=== PATIENT | male | born 2005 | race Caucasian/White ===

== ENCOUNTER 2023-02-05 07:37 | Outpatient (CLI) | payer BC | END 2023-02-05 07:38 | disposition home or self-care (01) | LOC: ULT 07:37 | PROVIDERS: ATTEND Family Medicine | DX: R11.0 Nausea (principal); K76.0 Fatty (change of) liver, not elsewhere classified; R16.1 Splenomegaly, not elsewhere classified | CPT/HCPCS: 76700 ==

== ENCOUNTER 2023-02-25 13:09 | Outpatient (CLI) | payer BC | END 2023-02-25 13:10 | disposition home or self-care (01) | LOC: CT 13:09 | PROVIDERS: ATTEND Internal Medicine Gastroenterology | DX: R11.2 Nausea with vomiting, unspecified (principal); R19.7 Diarrhea, unspecified; R63.4 Abnormal weight loss; Q43.3 Congenital malformations of intestinal fixation; R93.89 Abnormal findings on diagnostic imaging of other specified body structures; R16.1 Splenomegaly, not elsewhere classified | CPT/HCPCS: 74178 ==